=== PATIENT | male | born 1945 | race Hispanic/Latino ===

== ENCOUNTER 2021-11-29 06:44 | Inpatient (IN) | payer MEDICARE ==
[2021-11-27 10:18] LABS: APPEARANCE,URINE CLEAR (CLEAR); BILIRUBIN,URINE NEGATIVE (NEGATIVE); COLOR,URINE LIGHT-YELLOW (YELLOW); GLUCOSE, URINE (UA) 200 mg/dL (NEGATIVE); KETONES,URINE NEGATIVE (NEGATIVE); LEUKOCYTE ESTERASE ,URINE NEGATIVE Leu/uL (NEGATIVE); NITRATE,URINE NEGATIVE (NEGATIVE); OCCULT BLOOD,URINE NEGATIVE (NEGATIVE); PROTEIN,URINE NEGATIVE (NEGATIVE); UROBILINOGEN,URINE 0.2 mg/dL (0.2-1.0)
[2021-11-27 10:19] LABS: BASOPHILS % (AUTO) 0.3 % (0.0-5.0); EOSINOPHILS % (AUTO) 1.4 % (0.0-8.0); HEMATOCRIT 45.8 % (42-54); LYMPHOCYTES % (AUTO) 18.8 % (21.0-51.0); MEAN CORPUSCULAR HEMOGLOBIN 29.2 pg (27.0-33.0); MEAN CORPUSCULAR HGB CONC 32.5 g/dL (32.0-36.0); MEAN CORPUSCULAR VOLUME 89.6 fL (79-99); MONOCYTES % (AUTO) 8.4 % (3.0-13.0); NEUTROPHILS % (AUTO) 70.4 % (40.0-77.0); PLATELET COUNT (AUTO) 211 K/uL (130-400); RED BLOOD CELL COUNT(AUTO) 5.11 MIL/uL (4.50-6.20)
[2021-11-27 10:24] LABS: MUCUS,URINE RARE LPF (None Seen); RBC,URINE 0-1 /HPF (0-1); SQUAMOUS EPITHELIAL CELL,UR RARE /HPF (0-2)
[2021-11-27 10:25] LABS: ALBUMIN 3.8 g/dL (3.5-5.0); CREATININE 0.8 mg/dL (0.5-1.5); CRP QUANTITATIVE 4.4 mg/L (0.00-9.0); POTASSIUM 3.9 mmol/L (3.5-5.1)
[2021-11-27 10:28] LABS: INR 0.95 (0.85-1.15); PROTHROMBIN TIME 10.4 SEC (9.6-11.6)
[2021-11-27 10:29] LABS: PARTIAL THROMBOPLASTIN TIME 27.8 SEC (26.3-35.5)
[2021-11-28 09:21] VITALS: BP 144/90
[~2021-11-29] VITALS: Ht 172.7 cm; Wt 132.9 kg
[2021-11-29] VITALS (20 sets, daily range): BP systolic 103–153; BP diastolic 66–81
[~2021-11-29 06:44] MED LIST: CEFAZOLIN SODIUM 1 GM VIAL IVP SCH; DIPH25TA51 PO; HYDR-3830 PO; LIDOP TP; MELA5CAP PO; OMEP20CA12 PO; ROSU10TA28 PO; TADA5TAB13 PO; TAMS-1 PO
[2021-11-29] MEDS ORDERED: CEFAZOLIN SODIUM 1 GM VIAL ONE (06:59)
[2021-11-29] MEDS ORDERED: LACTATED RINGERS 1000ML 1,000 ML IV ONE (07:59)
[2021-11-29] MEDS ORDERED: ROPIVACAINE 0.5% 5MG/ML 30ML IJ ONE (08:10)
[2021-11-29] MEDS ORDERED: LIDOCAINE PF 100MG/5ML (2%) SYRINGE 5ML ONE (08:52)
[2021-11-29] MEDS ORDERED: GLYCOPYRROLATE 1 MG/5 ML SYRINGE ONE (08:53)
[2021-11-29] MEDS ORDERED: ONDANSETRON 4MG INJ ONE (08:53)
[2021-11-29] MEDS ORDERED: PROPOFOL 10 MG/ML 20ML VIAL IV ONE (08:54)
[2021-11-29] MEDS ORDERED: NEOSTIGMINE 5MG/5ML SYR IV ONE (08:54)
[2021-11-29] MEDS ORDERED: ROCURONIUM 10MG/1ML SYR 10 MG/ML ML ONE ×3 (08:55→12:03)
[2021-11-29] MEDS ORDERED: MIDAZOLAM HCL 1 MG/ML 2ML VIAL ONE (08:55)
[2021-11-29] MEDS ORDERED: KETOROLAC 30MG VIAL (30MG/ML) ONE (08:56)
[2021-11-29] MEDS ORDERED: FENTANYL CITRATE PF 50 MCG/1 ML 2ML VIAL ONE ×2 (08:56→10:46)
[2021-11-29] MEDS ORDERED: PHENYLEPHRINE HCL 10 MG/ML 1ML VIAL IV ONE (08:58)
[2021-11-29] MEDS ORDERED: CEFAZOLIN SODIUM 3 GM VIAL IV ONE (09:40)
[2021-11-29] MEDS ORDERED: DEXAMETHASONE SOD PHOSPHATE 10MG/ML 1ML VIAL ONE (10:09)
[2021-11-29] MEDS ORDERED: SUGAMMADEX SODIUM 200 MG/2 ML VIAL IV ONE (12:08)
[2021-11-29] MEDS ORDERED: ONDANSETRON 4MG INJ IVP PRN (13:00)
[2021-11-29] MEDS ORDERED: KCL 20 MEQ ERTAB PO PRN (13:00)
[2021-11-29] MEDS ORDERED: DiphenhydrAMINE HCL 50 MG/ML VIAL IVP PRN (13:00)
[2021-11-29] MEDS ORDERED: POTASSIUM CHLORIDE 10% ELIXIR 20 MEQ/15 ML UDCUP PO PRN (13:00)
[2021-11-29] MEDS ORDERED: LIDOCAINE HCL-MPF 1% 2ML VIAL IV PRN (13:00)
[2021-11-29] MEDS: 0.9%NACL 1000ML 1,000 ML IV SCH ×2 (13:00→20:16)
[2021-11-29] MEDS ORDERED: CALCIUM CARB 500MG PO PRN (13:00)
[2021-11-29] MEDS ORDERED: FE FUMARATE/FA/MV, MIN COMB#15 1 TAB PO PRN (13:00)
[2021-11-29] MEDS ORDERED: TRAMADOL HCL 50 MG TABLET PO PRN (13:00)
[2021-11-29] MEDS ORDERED: POTASSIUM CHLORIDE 20MEQ/100ML 100 ML IV PRN (13:00)
[2021-11-29] MEDS ORDERED: CYCLOBENZAPRINE HCL 10 MG TABLET PO PRN (15:30)
[2021-11-29] MEDS ORDERED: HYDROCODONE/ACETAMINOPHEN 5/325 MG TAB PO PRN ×2 (15:30)
[2021-11-29] MEDS: KETOROLAC 15MG/ML VIAL (15MG/ML) IV SCH ×2 (16:00→23:37)
[2021-11-29] MEDS ORDERED: Melatonin 5 MG PO PRN (19:00)
[2021-11-29] MEDS ORDERED: DIPHENHYDRAMINE HCL 25 MG CAPSULE PO PRN (19:00)
[2021-11-29] MEDS: CEFAZOLIN SODIUM 1 GM VIAL IVP SCH (19:09)
[2021-11-29] MEDS ORDERED: PHARMACY COMMUNICATION MISC SCH (19:30)
[2021-11-29] MEDS ORDERED: GABAPENTIN 100 MG CAPSULE ONE (19:55)
[2021-11-29] MEDS: DOCUSATE SODIUM 100 MG CAP PO SCH (20:12)
[2021-11-29] MEDS: TAMSULOSIN HCL 0.4 MG CAP.ER.24H PO SCH (20:12)
[2021-11-29] MEDS: Tadalafil 5 MG PO SCH (20:15)
[2021-11-29] MEDS: GABAPENTIN 100 MG CAPSULE PO SCH (20:15)
[2021-11-29] MEDS ORDERED: GABAPENTIN 100 MG CAPSULE PO SCH (21:00)
[2021-11-29] MEDS ORDERED: HYDROXYZINE 10 MG TABLET PO SCH (21:00)
[2021-11-29] MEDS ORDERED: Rosuvastatin Calcium 10 MG PO SCH (21:00)
[2021-11-30 00:22] VITALS: BP 144/80
[2021-11-30] MEDS: CEFAZOLIN SODIUM 1 GM VIAL IVP SCH (02:32)
[2021-11-30 03:40] VITALS: BP 115/81
[2021-11-30 04:07] LABS: HEMATOCRIT 38.3 % (42-54); MEAN CORPUSCULAR HEMOGLOBIN 29.2 pg (27.0-33.0); MEAN CORPUSCULAR HGB CONC 32.6 g/dL (32.0-36.0); MEAN CORPUSCULAR VOLUME 89.5 fL (79-99); RED BLOOD CELL COUNT(AUTO) 4.28 MIL/uL (4.50-6.20); RED CELL DISTRIBUTION WIDTH 13.9 % (11.0-15.5); WHITE BLOOD COUNT (AUTO) 14.1 K/uL (4.8-10.8)
[2021-11-30 04:15] LABS: CREATININE 0.9 mg/dL (0.5-1.5)
[2021-11-30] MEDS: GABAPENTIN 100 MG CAPSULE PO SCH (05:34)
[2021-11-30 07:50] VITALS: BP 128/74
[2021-11-30] MEDS ORDERED: GABA100C PO (08:56)
[2021-11-30] MEDS ORDERED: DOCU-116 PO (08:56)
[2021-11-30] MEDS ORDERED: HYDR-4060 PO (08:56)
[2021-11-30] MEDS ORDERED: CYCL-309 PO (08:56)
[2021-11-30] MEDS: DOCUSATE SODIUM 100 MG CAP PO SCH (09:00)
[2021-11-30] MEDS: 0.9%NACL 1000ML 1,000 ML IV SCH (09:00)
[2021-11-30] MEDS ORDERED: ASPIRIN 325MG TAB PO SCH (09:00)
[2021-11-30] MEDS: Tadalafil 5 MG PO SCH (09:00)
[2021-11-30] MEDS ORDERED: PANTOPRAZOLE 40 MG TAB DR PO SCH (09:00)
[2021-11-30] MEDS ORDERED: POLYETHYLENE GLYCOL 3350 17 GM POWD.PACK PO SCH (09:00)
[2021-11-30] MEDS: KETOROLAC 15MG/ML VIAL (15MG/ML) IV SCH (09:01)
[2021-11-30] MEDS: TAMSULOSIN HCL 0.4 MG CAP.ER.24H PO SCH (09:05)
[2021-11-30 11:15] VITALS: BP 132/68
[2021-12-02] MEDS ORDERED: BISACODYL 10 MG SUPP.RECT RC PRN (13:00)
== END 2021-11-30 15:25 | disposition home or self-care (01) | DRG 483 ==
LOC: DAHIP 06:44 → EDSTATUS 08:30 → 4CH 14:13
PROVIDERS: ADMIT Student in an Organized Health Care Education/Training Program; ATTEND Student in an Organized Health Care Education/Training Program
PROC: 0RRJ00Z Replacement of Right Shoulder Joint with Reverse Ball and Socket Synthetic Substitute, Open Approach (ICD-10-PCS; principal; 2021-11-29 08:30)
PROC: 5A09357 Assistance with Respiratory Ventilation, Less than 24 Consecutive Hours, Continuous Positive Airway Pressure (ICD-10-PCS; 2021-11-30)
DX: M19.011 Primary osteoarthritis, right shoulder (principal); M75.101 Unspecified rotator cuff tear or rupture of right shoulder, not specified as traumatic; Z20.822 Contact with and (suspected) exposure to COVID-19; D64.9 Anemia, unspecified
CPT/HCPCS: 36415; 73020; 73030; 80048; 81001; 82040; 82948; 84134; 85025; 85027; 85610; 85730; 86140; 87077; 87088; 87186; 87426; 87641; C1776; G0378; J0690; J1100; J1885; J2001; J2250; J2370; J2405; J2704; J2710; J2795; J3010; J3490; J7120

== ENCOUNTER → 2023-08-30 | Outpatient (CLI) | payer MEDICARE ==
[~2023-08-30] MED LIST changes: -CEFAZOLIN SODIUM 1 GM VIAL IVP SCH; +CYCL-309 PO; +DOCU-116 PO; +GABA100C PO; +HYDR-4060 PO; -ROSU10TA28 PO; +ROSU10TA72 PO
== END | disposition home or self-care (01) ==
LOC: RAH 13:17
PROVIDERS: ATTEND Orthopaedic Surgery
DX: M17.12 Unilateral primary osteoarthritis, left knee (principal)
CPT/HCPCS: 93926

== ENCOUNTER → 2024-11-03 | Outpatient (CLI) | payer OTHER ==
[~2024-11-03] MED LIST changes: -TADA5TAB13 PO; +TADA5TAB14 PO; -TAMS-1 PO; +TAMS-55 PO
[2024-11-03 21:38] VITALS: PULSE 71; RESP 12
[2024-11-03 22:00] VITALS: PULSE 69; RESP 12
[2024-11-03 22:33] VITALS: PULSE 53; RESP 12
[2024-11-03 23:01] VITALS: PULSE 70; RESP 12
--- NOTE | 2024-11-03 23:18 | NUR ---
CURRENT MEDICATION LIST: .. 10 MG MELATONIN, OXYBUTYMIN 5MG, OMEPRIZIL 20 MG, TODFIL 4MG, MIRABESON 50MG, TROMIL 100MG. Addendum: 11/03/24 at 2320 by OPAL TOBIASLT Amended: Links added.
[2024-11-03 23:34] VITALS: PULSE 67; RESP 14
[2024-11-04] VITALS (16 sets, daily range): PULSE 62–75; RESP 7–20
--- NOTE | 2024-11-04 05:54 | NUR ---
PATIENT REMEMBERED ADDITIONAL CURRENT MEDICATION POST TEST. LIDOCAINE 5% PATCH. Addendum: 11/04/24 at 0555 by OPAL TOBIASLT Amended: Links added.
== END | disposition home or self-care (01) ==
LOC: SLP 19:52
PROVIDERS: ATTEND Nurse Practitioner Family
DX: G47.33 Obstructive sleep apnea (adult) (pediatric) (principal); R06.83 Snoring; M54.9 Dorsalgia, unspecified; R35.1 Nocturia; G47.00 Insomnia, unspecified; N52.9 Male erectile dysfunction, unspecified; R53.83 Other fatigue; F41.9 Anxiety disorder, unspecified
CPT/HCPCS: 95811

== ENCOUNTER → 2024-12-16 | Outpatient (CLI) | payer OTHER ==
[~2024-12-16] MED LIST changes: +IOHEXOL 350 MG/ML 100ML INFUS..BTL IV ONE; -ROSU10TA72 PO; +ROSU10TA98 PO
--- NOTE | 2024-12-23 21:15 | CARDIOLOGY ---
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 A dedicated, limited window, coronary imaging protocol was used, with single breath-hold, retrospective ECG gating, and automated arrhythmia rejection. 100 cc of low osmolar contrast agent: Omnipaque 350 was delivered via a 18-gauge IV catheter in the right antecubital fossa, using a power injector and followed by 60 cc of normal saline bolus as a chaser. Collimated images were reformatted at 0.5 mm intervals, and sent to an offline independent workstation for interpretation, using 3D anatomic reconstructions: Curved multiplanar reconstructions, maximum intensity projections, and multiplanar imaging. No metoprolol was administered prior to scanning due to low baseline heart rate. 0.4 mg SL nitroglycerin was given. CORONARY ARTERY DESCRIPTIONS: The coronary arteries arise in normal position. Left main coronary artery: Normal caliber vessel that bifurcates into the LAD and LCx. No stenosis. Left anterior descending coronary artery: Normal caliber vessel and gives rise to diagonal and septal branches. There is calcified plaque in the proximal LAD with 20-30% stenosis. Left circumflex coronary artery: Normal caliber, nondominant and gives rise to two OM branches. No stenosis. Right coronary artery: Large, dominant vessel giving rise to the PL and PDA branches. No stenosis. CAD-RADs: 2, mild non-obstructive CAD. Thoracic Aorta: Normal diameter. Martha Yang MD Cardiovascular Disease [facility] MARTHA YANG MD Dec 23, 2024 21:15
== END | disposition home or self-care (01) ==
LOC: RAH 07:37
PROVIDERS: ATTEND Internal Medicine Cardiovascular Disease
DX: I25.10 Atherosclerotic heart disease of native coronary artery without angina pectoris (principal); R07.89 Other chest pain
CPT/HCPCS: 75574; Q9967